=== PATIENT | male | born 2000 | race Caucasian/White ===

== ENCOUNTER 2018-01-09 14:23 | Emergency (ER) | payer OTHER ==
[2018-01-09 14:54] LABS: PLATELET COUNT 354 10^3/uL (150-400)
--- NOTE | 2018-01-09 15:27 | EDPHY ---
HPI/HX/ROS/PE/MDM Narrative: CHIEF COMPLAINT: Seizure HISTORY OF PRESENT ILLNESS: The patient is a 17 y/o male arriving via EMS after having a witnessed seizure this afternoon. While meeting with his school counselor he began to feel sweaty and then subsequently passed out and had a seizure. He remember talking to his counselor and his next memory is waking up with EMS at his side. He is currently complaining of right-sided neck and head pain. Denies vision changes, recent head injury or familial history of seizures. Admits to drinking alcohol on Saturday, 6 days ago, and smoking marijuana 24 hours ago. Denies illicit drug use. No fever, chills, chest pain, shortness of breath, palpitations, vomiting, diarrhea, urinary complaints, lightheadedness. REVIEW OF SYSTEMS: Aside from elements discussed in the HPI, a comprehensive 10-point review of systems was reviewed and is negative. PAST MEDICAL HISTORY: Denies SOCIAL HISTORY: Freshman at , lives in the dorms, originally from [place], [place] VITAL SIGNS: Reviewed by me GENERAL: Mildly anxious, well-developed, well-nourished, resting comfortably in no respiratory distress. HEENT: Abrasion on right side of forehead. Eyes: Dilated pupils, no icterus, no injection. Mouth: moist mucous membranes. No erythema or lesions. No trauma to tongue Neck: right paraspinous neck tenderness, supple with no adenopathy. LUNGS: Clear to auscultation bilaterally, no wheezes, rhonchi or rales. CARDIAC: Regular rate and rhythm, no rubs, murmurs or gallops. ABDOMEN: Soft, nontender, nondistended, bowel sounds normal. BACK: No CVA tenderness. EXTREMITIES: No trauma. No edema. Range of motion is normal throughout. NEURO: Alert and oriented, grossly nonfocal. SKIN: Warm and dry, no rash. PSYCHIATRIC: Normal mentation, no agitation. Portions of this note were transcribed by a medical safety director. I personally performed a history, physical exam, medical decision making, and confirmed accuracy of information the transcribed note. ED Course: The patient is a 17 y/o male arriving via EMS after having his first witnessed seizure this afternoon. On exam the patient is anxious, has dilated pupils, an abrasion on the right side of his forehead, and right paraspinous neck tenderness. 1511: Spoke with radiologist, there are no acute findings on patient's head CT. 1637: Patient's drug tox reveals cocaine use. 1639: Spoke with radiologist, there are no acute findings on patient's c-spine CT. 1640: Reassessed patient and discussed laboratory and imaging findings. I have advised him to stop using illicit drugs. Return precautions provided; patient is comfortable with this plan. - Data Points Imaging Results: Imaging Impressions Head CT 01/09/18 14:46 Impression: 1. No significant intracranial abnormality seen. If symptoms worsen, additional imaging may be necessary. Findings discussed with Malorie Williamson MD at 15:11 hour, 01/09/2018. Cervical Spine CT 01/09/18 15:35 Impression: 1. No acute fracture or soft tissue swelling. 2. If the patient has persistent pain or neurologic deficits, consider cervical spine MRI. Findings discussed with Emergency Department physician, Malorie Williamson MD, on , 16:39. Imaging: Discussed imaging studies w/ call or contact centre manager Radiologist Laboratory Results: Laboratory Results 01/09/18 14:30 01/09/18 14:30 01/09/18 01/09/18 01/09/18 16:00 14:30 14:30 WBC 12.46 10^3/uL H 10^3/uL (3.80-9.50) RBC 6.44 10^6/uL H 10^6/uL (4.40-6.38) Hgb 18.5 g/dL H g/dL (13.7-17.5) Hct 57.7 % H % (40.0-51.0) MCV 89.6 fL fL (81.5-99.8) MCH 28.7 pg pg (27.9-34.1) MCHC 32.1 g/dL L g/dL (32.4-36.7) RDW 13.3 % % (11.5-15.2) Plt Count 354 10^3/uL 10^3/uL (150-400) MPV 10.0 fL fL (8.7-11.7) Neut % (Auto) 65.2 % % (39.3-74.2) Lymph % (Auto) 26.6 % % (15.0-45.0) [place] % (Auto) 5.4 % % (4.5-13.0) Eos % (Auto) 1.4 % % (0.6-7.6) Baso % (Auto) 0.3 % % (0.3-1.7) Nucleat RBC Rel Count 0.0 % % (0.0-0.2) Absolute Neuts (auto) 8.12 10^3/uL H 10^3/uL (1.70-6.50) Absolute Lymphs (auto) 3.31 10^3/uL H 10^3/uL (1.00-3.00) Absolute Monos (auto) 0.67 10^3/uL 10^3/uL (0.30-0.80) Absolute Eos (auto) 0.18 10^3/uL 10^3/uL (0.03-0.40) Absolute Basos (auto) 0.04 10^3/uL 10^3/uL (0.02-0.10) Absolute Nucleated RBC 0.00 10^3/uL 10^3/uL (0-0.01) Immature Gran % 1.1 % % (0.0-1.1) Immature Gran # 0.14 10^3/uL H 10^3/uL (0.00-0.10) Sodium 144 mEq/L mEq/L (135-145) Potassium 4.8 mEq/L mEq/L (3.5-5.2) Chloride 98 mEq/L mEq/L (97-110) Carbon Dioxide 10 mEq/l L mEq/l (22-31) Anion Gap 36 mEq/L H mEq/L (8-16) BUN 12 mg/dL mg/dL (7-23) Creatinine 1.2 mg/dL mg/dL (0.7-1.3) Estimated GFR > 60 Glucose 120 mg/dL H mg/dL (70-100) Calcium 10.4 mg/dL mg/dL (8.5-10.4) Urine Opiates Screen NEGATIVE (NEGATIVE) Urine Barbiturates NEGATIVE (NEGATIVE) Ur Phencyclidine Scrn NEGATIVE (NEGATIVE) Ur Amphetamine Screen NEGATIVE (NEGATIVE) U Benzodiazepines Scrn NON-NEGATIVE H (NEGATIVE) Urine Cocaine Screen NON-NEGATIVE H (NEGATIVE) U Marijuana (THC) Screen NON-NEGATIVE H (NEGATIVE) General Time Seen by Provider: 01/09/18 14:39 Initial Vital Signs: Initial Vital Signs Temperature (C) 37.1 C 01/09/18 14:23 Heart Rate 86 01/09/18 14:23 Respiratory Rate 16 01/09/18 14:23 Blood Pressure 120/68 01/09/18 14:23 O2 Sat (%) 100 01/09/18 14:23 O2 Delivery Mode Room Air Allergies/Adverse Reactions: No Known Allergies Allergy (Unverified 01/09/18 14:34) Home Medications: Medication Instructions Recorded NK [No Known Home Meds] 01/09/18 Departure - Departure Disposition: Home, Routine, Self-Care Clinical Impression: Seizure Condition: Good Instructions: New-Onset Seizure in Adults (ED) Additional Instructions: Please stop using illicit drugs. Follow-up with your primary doctor within 72 hours. Return to the Emergency Department for severe headache, vomiting, vision changes, confusion, fever or other concerns. Referrals: [facility],. [Clinic] - As per Instructions Report Scribed for: Malorie Williamson Report Scribed by: Brooklynn Frankel Date of Report: 01/09/18 Time of Report: 15:27
[2018-01-09 16:51] VITALS: BP 112/87
== END 2018-01-09 16:51 | disposition home or self-care (01) ==
DX: R56.9 Unspecified convulsions (principal)
CPT/HCPCS: 80305

== ENCOUNTER 2018-05-21 19:40 | Emergency (ER) | payer OTHER ==
--- NOTE | 2018-05-21 20:05 | EDPHY ---
H & P Stated Complaint: First-time seizure Time Seen by Provider: 05/21/18 20:04 HPI/ROS: CHIEF COMPLAINT: First-time seizure HISTORY OF PRESENT ILLNESS: The patient presents the emergency department after a witnessed first-time seizure by his mother. The patient did have a mild postictal period which has improved. The patient denies any complaints of acute headache or antecedent headache. The patient does report occasional marijuana use. He denies any significant alcohol use, withdrawal or additional recreational drug use. The patient reports there is no family history of seizure disorder. Patient denies any chest pain or shortness of breath. He denies any acute traumatic complaints. REVIEW OF SYSTEMS: A comprehensive 10 point review of systems is otherwise negative aside from elements mentioned in the history of present illness. Source: Patient - Personal History Current Tetanus Diphtheria and Acellular Pertussis (TDAP): Yes - Medical/Surgical History Hx Asthma: No Hx Chronic Respiratory Disease: No Hx Diabetes: No Hx Cardiac Disease: No Hx Renal Disease: No Hx Cirrhosis: No Hx Alcoholism: No Hx HIV/AIDS: No Hx Splenectomy or Spleen Trauma: No Other PMH: ACL repair - Social History Smoking Status: Former smoker - Physical Exam Exam: General Appearance: Alert, no distress Eyes: Pupils equal and round no pallor or injection ENT, Mouth: Mucous membranes moist Respiratory: There are no retractions, lungs are clear to auscultation Cardiovascular: Regular rate and rhythm Gastrointestinal: Abdomen is soft and nontender, no masses, bowel sounds normal Neurological: A&O, normal motor function, normal sensory exam, normal cranial nerves Skin: Warm and dry, no rashes Musculoskeletal: Neck is supple nontender Extremities: symmetrical, full range of motion Psychiatric: Patient is oriented X 3, there is no agitation Constitutional: Initial Vital Signs Temperature (C) 36.4 C 05/21/18 19:45 Heart Rate 116 H 05/21/18 19:45 Respiratory Rate 18 05/21/18 19:45 Blood Pressure 123/92 H 05/21/18 19:45 O2 Sat (%) 92 05/21/18 19:45 O2 Delivery Mode Room Air Allergies/Adverse Reactions: No Known Allergies Allergy (Unverified 05/21/18 19:44) Home Medications: Medication Instructions Recorded NK [No Known Home Meds] 01/09/18 Medical Decision Making ED Course/Re-evaluation: The patient presents to the ED after unprovoked seizure. The patient does report poor sleep for the past several nights while moving into a new college living situation. He denies any stimulant use. He denies any symptoms of alcohol withdrawal. The patient was noted to be neurologically intact upon arrival. Workup in the emergency department consisted of a negative noncontrast head CT scan. Laboratory studies do demonstrate a mild acidosis consistent with his seizure as well as some evidence of dehydration. Patient was treated with 2 L of normal saline in the emergency department. He had serial examinations over a 90 min period without recurrent seizure. I re-evaluated the patient at 8:45 p.m.. He will be discharged home with customary seizure aftercare instructions. He is given the contact number of our on-call neurologist for comprehensive evaluation. Differential Diagnosis: Differential diagnosis considered includes seizure, intracranial hemorrhage, meningitis, dehydration, metabolic abnormality - Data Points Laboratory Results: Laboratory Results 05/21/18 19:55 05/21/18 19:55 05/21/18 05/21/18 19:55 19:55 WBC 15.51 10^3/uL H 10^3/uL (3.80-9.50) RBC 6.25 10^6/uL 10^6/uL (4.40-6.38) Hgb 18.3 g/dL H g/dL (13.7-17.5) Hct 57.2 % H % (40.0-51.0) MCV 91.5 fL fL (81.5-99.8) MCH 29.3 pg pg (27.9-34.1) MCHC 32.0 g/dL L g/dL (32.4-36.7) RDW 12.6 % % (11.5-15.2) Plt Count 284 10^3/uL 10^3/uL (150-400) MPV 10.2 fL fL (8.7-11.7) Neut % (Auto) Pending Lymph % (Auto) Pending [place] % (Auto) Pending Eos % (Auto) Pending Baso % (Auto) Pending Nucleat RBC Rel Count Pending Absolute Neuts (auto) Pending Absolute Lymphs (auto) Pending Absolute Monos (auto) Pending Absolute Eos (auto) Pending Absolute Basos (auto) Pending Absolute Nucleated RBC Pending Immature Gran % Pending Immature Gran # Pending Platelet Estimate Pending Sodium 145 mEq/L mEq/L (135-145) Potassium 4.3 mEq/L mEq/L (3.3-5.0) Chloride 100 mEq/L mEq/L (97-110) Carbon Dioxide 11 mEq/l L mEq/l (22-31) Anion Gap 34 mEq/L H mEq/L (8-16) BUN 11 mg/dL mg/dL (7-23) Creatinine 1.4 mg/dL H mg/dL (0.7-1.3) Estimated GFR > 60 Glucose 104 mg/dL H mg/dL (70-100) Calcium 10.4 mg/dL mg/dL (8.5-10.4) Departure - Departure Disposition: Home, Routine, Self-Care Clinical Impression: Seizure disorder Condition: Good Instructions: New-Onset Seizure in Adults (ED) Additional Instructions: 1. No driving, dangerous activities such as riding a ski lift, swimming in a pool or other behavior that could put you or someone else at risk in the event of a recurrent seizure. You will need to be cleared by a neurologist, Dr. Giles, to resume these activities. 2. Please return to the ED for recurrent seizure, headache, numbness, weakness, altered mental status or other concerns. 3. Please follow up with neurologist you have been referred to this week to schedule a follow-up appointment. Referrals: Gil Giles MD [Medical Doctor] - As per Instructions
[2018-05-21 20:12] LABS: PLATELET COUNT 284 10^3/uL (150-400)
[2018-05-21 20:50] VITALS: BP 132/78
== END 2018-05-21 20:53 | disposition home or self-care (01) ==
LOC: EDUNIT#
DX: G40.909 Epilepsy, unspecified, not intractable, without status epilepticus (principal); Z87.891 Personal history of nicotine dependence

== ENCOUNTER → 2018-07-01 | Outpatient (CLI) | payer OTHER ==
[~2018-07-01] MED LIST: GADOBUTROL 10 ML VIAL IVP ONE
== END ==
LOC: FIMAGING 15:42
PROVIDERS: ATTEND Psychiatry & Neurology Neurology
DX: R56.9 Unspecified convulsions (principal)
CPT/HCPCS: A9585

== ENCOUNTER → 2018-07-08 | Outpatient (CLI) | payer OTHER ==
--- NOTE | 2018-07-08 13:41 | CPEEG ---
4-HOUR VIDEO EEG DATE OF STUDY: 07/08/2018 INTERPRETATION: This 4-hour video EEG recording is essentially normal. There were no definite potentially epileptogenic abnormalities present in the awake or sleep recordings. There was prominent beta frequency activity present in the background. This can be a physiologic finding or sometimes related to medication effect ( GABAergic medications). During the video EEG monitoring session, the patient did not have clinical events. REPORT: This 4-hour video EEG contains 10 Hz alpha activity to the posterior head regions. There was prominent beta frequency activity present in the background throughout the study. There was no abnormal activation at rest, during photic stimulation, or hyperventilation. The patient became drowsy and fell into sustained sleep during the study. There was no abnormal activation during drowsiness, sleep, or during times of arousal. The patient did not have any clinical events during the video EEG monitoring session. /[id number]/MODL MTDD
== END ==
LOC: FCPNEURO 07:34
PROVIDERS: ATTEND Psychiatry & Neurology Neurology
DX: R56.9 Unspecified convulsions (principal)

== ENCOUNTER 2018-09-27 00:21 | Emergency (ER) | payer OTHER ==
[2018-09-27 00:26] VITALS: BP 127/87
--- NOTE | 2018-09-27 00:28 | EDPHY ---
H & P Stated Complaint: SOB, wheezing, can't find inhaler Time Seen by Provider: 09/27/18 00:28 HPI/ROS: HPI CHIEF COMPLAINT: Shortness of breath and wheezing. HISTORY OF PRESENT ILLNESS: 18-year-old male, otherwise healthy no significant medical history except for asthma, never been intubated is never been hospitalized. Presents emergency room with initially URI type symptoms a few days ago however this is triggered his asthma. He has been wheezing and coughing. Clear sputum. No fever. Denies chest pain or chest tightness, denies shortness of breath. Does complain of wheezing. She is trying to find his inhaler but is unable to do so. Presents emergency room wheezing. Wheezing throughout all lung robert. No distress. Past Medical History: Asthma Past Surgical History: No recent surgery Social History: Denies drugs alcohol tobacco [employer] student. Does not smoke. Family History: Noncontributory ROS REVIEW OF SYSTEMS: 10 Systems were reviewed and negative with the exception of the elements mentioned in the history of present illness. Exam Constitutional appears well nontoxic however wheezing, triage nursing summary reviewed, vital signs reviewed, awake/alert. No hypoxia. Eyes normal conjunctivae and sclera, EOMI, PERRLA. HENT normal inspection, atraumatic, moist mucus membranes, no epistaxis, neck supple/ no meningismus, no raccoon eyes. Respiratory wheezing throughout all lung robert but good air movement. No distress. Cardiovascular rate normal, regular rhythm, no murmur, no edema, distal pulses normal. Gastrointestinal soft, non-tender, no rebound, no guarding, normal bowel sounds, no distension, no pulsatile mass. Genitourinary no CVA tenderness. Musculoskeletal no midline vertebral tenderness, full range of motion, no calf swelling, no tenderness of extremities, no meningismus, good pulses, neurovascularly intact. Skin pink, warm, & dry, no rash, skin atraumatic. Neurologic awake, alert and oriented x 3, AAOx3, moves all 4 extremities equally, motor intact, sensory intact, CN II-XII intact, normal cerebellar, normal vision, normal speech. Psychiatric normal mood/affect. Heme/Lymph/Immune no lymphadenopathy. Differential Diagnosis: Includes but is not limited to in a particular order acute asthma attack, URI, viral pneumonia, bacterial pneumonia, pneumothorax Medical Decision Making: Plan for this patient chest x-ray to rule out pneumonia, DuoNeb breathing treatment, prednisone 60 mg p.o., albuterol take- home pack. Re-evaluation: 1250: Patient re-evaluated this time is had a DuoNeb breathing treatment is doing much better. Good air movement bilaterally. No distress. No wheezing. Wheezing has resolved. Patient resting comfortably feels much better after DuoNeb. 0146: Patient eloped from the emergency room. Did not notify any staff. He did not have an IV in. Unclear why he left. It was reported by nursing staff he was feeling better. He did receive his take, albuterol inhaler Patient did not receive any discharge paperwork He did not notify staff he was leaving He left the emergency room. Chest x-ray reviewed. - Personal History Current Tetanus Diphtheria and Acellular Pertussis (TDAP): Yes - Medical/Surgical History Hx Asthma: No Hx Chronic Respiratory Disease: No Hx Diabetes: No Hx Cardiac Disease: No Hx Renal Disease: No Hx Cirrhosis: No Hx Alcoholism: No Hx HIV/AIDS: No Hx Splenectomy or Spleen Trauma: No Other PMH: ACL repair - Social History Smoking Status: Former smoker Constitutional: Initial Vital Signs Temperature (C) 36.8 C 09/27/18 00:24 Heart Rate 97 09/27/18 00:24 Respiratory Rate 19 09/27/18 00:24 Blood Pressure 127/87 H 09/27/18 00:24 O2 Sat (%) 92 09/27/18 00:24 O2 Delivery Mode Room Air Allergies/Adverse Reactions: No Known Allergies Allergy (Unverified 09/27/18 00:24) Home Medications: Medication Instructions Recorded Zak 09/27/18 predniSONE 60 mg PO DAILY #15 tab 09/27/18 Medical Decision Making - Data Points Medications Given: Discontinued Medications Albuterol Sulfate (Proventil Inh Prepack) 1 mdi TAKEHOME EDNOW ONE Stop: 09/27/18 00:48 Last Admin: 09/27/18 01:01 Dose: 1 mdi Albuterol/Ipratropium (Duoneb) 3 ml IH EDNOW ONE Stop: 09/27/18 00:37 Last Admin: 09/27/18 00:41 Dose: 3 ml Albuterol/Ipratropium (Duoneb) 3 ml IH EDNOW ONE Stop: 09/27/18 00:54 Last Admin: 09/27/18 01:01 Dose: 3 ml Prednisone (Prednisone) 60 mg PO EDNOW ONE Stop: 09/27/18 00:48 Last Admin: 09/27/18 00:48 Dose: 60 mg Departure - Departure Disposition: Home, Routine, Self-Care Clinical Impression: Asthma attack Qualifiers: Asthma severity: mild Asthma persistence: unspecified Qualified Code(s): J45.901 - Unspecified asthma with (acute) exacerbation Condition: Good Instructions: Albuterol (By breathing), Asthma (ED) Additional Instructions: 1. Drink lots of fluids stay well-hydrated 2. Prednisone as prescribed 3. Albuterol inhaler 2 puffs every 4 hr as needed for cough, shortness of breath , wheezing 4. Return to the emergency room if worse. This includes fever return if you're having shortness of breath, wheezing, not doing well. Referrals: NONE *PRIMARY CARE P,. [Primary Care Provider] - As per Instructions Prescriptions: predniSONE 60 mg PO DAILY #15 tab
[2018-09-27] MEDS ORDERED: IPRATROPIUM/ALBUTEROL 3 ML DEYVIAL ONE (00:33)
[2018-09-27] MEDS ORDERED: IPRATROPIUM/ALBUTEROL 3 ML DEYVIAL IH ONE ×2 (00:36→00:53)
[2018-09-27] MEDS ORDERED: predniSONE 20 MG TAB ONE (00:47)
[2018-09-27] MEDS ORDERED: ALBUTEROL INH PREPACK MDI TAKEHOME ONE (00:47)
[2018-09-27] MEDS ORDERED: predniSONE 20 MG TAB PO ONE (00:47)
== END 2018-09-27 01:52 | disposition home or self-care (01) ==
DX: J45.901 Unspecified asthma with (acute) exacerbation (principal); Z87.891 Personal history of nicotine dependence
CPT/HCPCS: J7512

== ENCOUNTER 2019-03-18 16:25 | Emergency (ER) | payer OTHER | END 2019-03-18 18:44 | disposition home or self-care (01) ==